=== PATIENT | female | born 1975 | race Caucasian/White ===

== ENCOUNTER 2018-02-28 02:33 | Emergency (ER) | payer MEDICARE, OTHER ==
[~2018-02-28] VITALS: Ht 162.6 cm; Wt 81.6 kg
[~2018-02-28 02:33] MED LIST: DEMEROL50 MG; FISH OIL 1,0001 CA1 PO; LOVENOX40 MG/0.4; MULTI-DAY VITAM1 TAB PO
[2018-02-28 02:38] VITALS: Ht 162.6 cm; Wt 81.6 kg
[2018-02-28] MEDS ORDERED: PROTONIX20 MG PO (02:40)
[2018-02-28 03:15] LABS: BASOPHILS 0.1 % (0-2); EOSINOPHILS 0 % (0-7); HEMATOCRIT 42.8 % (36.0-48.0); HEMOGLOBIN 14.8 g/dL (12-16); IMMATURE GRANULOCYTES 0.2 % (0-5); LYMPHOCYTES 7.2 % (15-50); MCH 30.7 pg (26.0-34.0); MCHC 34.6 g/dL (31.0-37.0); MCV 88.8 fL (80.0-100.0); MEAN PLATELET VOLUME 10.4 fL (7.4-10.4); MONOCYTES 6.2 % (2-11); NEUTROPHILS 86.3 % (40-80); RBC 4.82 10x6/uL (4.00-5.40); RDW 12.8 % (11.5-14.5); WBC 12.4 10x3/uL (4.8-10.8)
[2018-02-28 03:18] LABS: PLATELET COUNT 277 10x3/uL (130-400)
[2018-02-28 03:30] LABS: ALBUMIN 3.8 g/dL (3.4-5.0); ALKALINE PHOSPHATASE 65 U/L (46-116); ALT (SGPT) 34 U/L (10-68); BILIRUBIN - TOTAL 0.67 mg/dL (0.2-1.3); CALC OSMOLALITY 267 mosm/kg (275-300); CALCIUM 8.7 mg/dL (8.5-10.1); CARBON DIOXIDE 24.7 mmol/L (21.0-32.0); CHLORIDE - SERUM 96 mmol/L (98-107); CREATININE - SERUM 0.8 mg/dL (0.6-1.3); POTASSIUM - SERUM 3.7 mmol/L (3.5-5.1); PROTEIN - SERUM 7.7 g/dL (6.4-8.2); SODIUM 132 mmol/L (136-145); UREA NITROGEN 13 mg/dL (7-18); eGFR NON AFRICAN AMERICAN 82 mL/min (90-120)
[2018-02-28 03:32] LABS: AMYLASE - SERUM 31 U/L (25-115); GLUCOSE 154 mg/dL (74-106); LIPASE 81 U/L (73-393)
[2018-02-28 03:33] LABS: TROPONIN-I < 0.017 ng/mL (0.000-0.060)
[2018-02-28 04:58] LABS: APPEARANCE CLEAR (CLEAR); BILIRUBIN NEGATIVE (NEGATIVE); COLOR YELLOW (YELLOW); GLUCOSE NEGATIVE (NEGATIVE); KETONE NEGATIVE (NEGATIVE); NITRITE NEGATIVE (NEGATIVE); PROTEIN NEGATIVE (NEGATIVE); SPECIFIC GRAVITY 1.005 (1.005-1.020); UROBILINOGEN NORMAL (NORMAL)
[2018-02-28 08:20] VITALS: BP 119/68
== END 2018-02-28 08:24 | disposition left against medical advice (07) ==
LOC: D.ER 02:33
PROVIDERS: Family Medicine
DX: N83.511 Torsion of right ovary and ovarian pedicle (principal); N83.201 Unspecified ovarian cyst, right side

== ENCOUNTER 2018-03-04 17:37 | Outpatient (CLI) | payer MEDICARE, OTHER ==
[~2018-03-04] VITALS: Ht 162.6 cm; Wt 83.2 kg
[~2018-03-04 17:37] MED LIST changes: +PROTONIX20 MG PO
[2018-03-04 22:40] VITALS: BP 129/72; Ht 162.6 cm; Wt 83.2 kg
[2018-03-04 23:13] LABS: BASOPHILS 0.2 % (0-2); EOSINOPHILS 1.8 % (0-7); HEMATOCRIT 41.1 % (36.0-48.0); HEMOGLOBIN 13.7 g/dL (12-16); IMMATURE GRANULOCYTES 0.1 % (0-5); LYMPHOCYTES 15.9 % (15-50); MCH 30.4 pg (26.0-34.0); MCHC 33.3 g/dL (31.0-37.0); MCV 91.1 fL (80.0-100.0); MEAN PLATELET VOLUME 10.1 fL (7.4-10.4); MONOCYTES 8.6 % (2-11); NEUTROPHILS 73.4 % (40-80); PLATELET COUNT 266 10x3/uL (130-400); RBC 4.51 10x6/uL (4.00-5.40); RDW 12.9 % (11.5-14.5); WBC 9.1 10x3/uL (4.8-10.8)
[2018-03-05 07:26] VITALS: BP 110/55
[2018-03-05 09:58] VITALS: BP 121/77
[2018-03-05 10:20] VITALS: BP 108/58
[2018-03-05 10:32] VITALS: BP 112/59
[2018-03-05 12:09] VITALS: BP 113/58
[2018-03-05] MEDS ORDERED: IBUPROFEN800 MG PO (13:55)
[2018-03-05] MEDS ORDERED: PERCOCET 5-3251 TAB PO (13:55)
--- NOTE | 2018-03-06 10:30 | OP ---
PATIENT NAME: TIARA LUCAS MEDICAL RECORD: [id number] :73 LOCATION:D[facility] ADMISSION DATE: SURGEON: BRET PUENTE MD DATE OF OPERATION: 03/05/2018 PREOPERATIVE DIAGNOSES: 1. Pelvic pain. 2. Suspect ovarian torsion. POSTOPERATIVE DIAGNOSIS: Right ovarian torsion. PROCEDURE PERFORMED: 1. Diagnostic laparoscopy. 2. Right salpingo-oophorectomy. SURGEON: Bret Puente MD [employer]ER: Andres Jerez. ANESTHESIOLOGIST: Ron Sethi MD ANESTHESIA: General anesthetic with endotracheal intubation. FINDINGS: Right ovary is enlarged and necrotic. The tube and pedicle was necrotic all the way to its origination at the pelvic sidewall, blood-tinged fluids in the pelvis. What was visualized of the rest of the pelvic and abdominal anatomy was unremarkable. SPECIMENS REMOVED: Right ovary and tube. SPECIMEN DISPOSITION: Pathology. ESTIMATED BLOOD LOSS: Minimal. FLUIDS: 800 cc lactated Ringer's. URINE OUTPUT: 200 cc clear urine. COMPLICATIONS: None. DRAINS: None. INDICATIONS: The patient is a 43-year-old female with a right pelvic pain. This pain has been ongoing for greater than a week. She was evaluated on the and found to have a suspected ovarian torsion, but left against advice. The patient presents with increasing pain and was consented for diagnostic laparoscopy, possible cystectomy, possible oophorectomy. DESCRIPTION OF PROCEDURE: After informed consent was assured, the patient was taken to the operating room where anesthetic was obtained without difficulty. The patient is now prepped and draped after a Aiken started. Incision was made in the umbilicus to accommodate a 5-mm trocar. This trocar was inserted. Pneumoperitoneum was developed. The patient was placed in Trendelenburg and accessory ports were placed in the right lower quadrant. Using a blunt probe, the bowel swept free of the pelvis. Ovary and tube are necrotic and attached to OPERATIVE REPORT [id number] TIARA LUCAS the right side of the pelvis. The torsion is proximal to the origination of the infundibulopelvic ligament from the sidewall. At this point, 12-mm ports placed in the midline. The bloody fluid that is contained within the pelvis is extracted. Using an Endo-scissors, adhesions of the bowel and omentum to the adnexa is taken down sharply. Gyrus coagulation cutter was now used to free the torsed mass from its attachments. After this had been performed, Endobag was placed through the 12-mm port and the ovary and tube along with the mass are all contained. Given the size of the mass, the 12-mm ports found to be too small and the midline incisions extended to accommodate the removal of the mass inside the Endobag. The fascia was now closed with running Vicryl stitch. Subcutaneous tissues inspected. Bleeding vessels cauterized and then a subcuticular stitch was used to close the 3-4 cm incision at the lower midline of the abdomen. Pneumoperitoneum has been reestablished and inspection of the pedicle reveals hemostasis. The pelvis is now irrigated and irrigant removed until clear. The pneumoperitoneum is released as accessory ports were removed and all sites closed with a subcuticular stitch. Sponge, lap, and needle counts correct times 2 at the close of this procedure. TRANSINT:[id number] Voice Confirmation ID: [id number] DOCUMENT ID: [id number] BRET PUENTE MD at 1030 CC: [id number] DICTATION DATE: 03/05/18 0904 QUAD STAYER: 03/05/18 1006 DEP CLI 03/05/18 [facility] [address] [place] [address]
== END 2018-03-05 15:57 | disposition home or self-care (01) ==
LOC: OBSVTIME → D.LDO 17:37 → D.ER 17:37 → D.LDO 19:11 → EDSTATUS 21:22 → D.LD 21:27 → D.LDO 03-05 05:00 → D.SDCHOLD 03-05 08:00 → OBSVTIME 03-05 08:00 → D.LDO 03-05 15:57
PROVIDERS: Obstetrics & Gynecology
DX: N83.511 Torsion of right ovary and ovarian pedicle (principal); K21.9 Gastro-esophageal reflux disease without esophagitis